=== PATIENT | male | born 1980 | race Hispanic/Latino ===

== ENCOUNTER 2023-10-03 11:42 | Emergency (ER) | payer SELFPAY ==
--- NOTE | ~2023-10-03 | XR_ITS ---
XR chest 2V DATE: 10/03/2023 12:58 INDICATION: Cough, shortness of breath with exertion, fever for one month TECHNIQUE: PA and lateral views COMPARISON: None FINDINGS: Heart size appears within upper limits of normal. No hilar or mediastinal enlargement. No pulmonary infiltrate or consolidation, pleural effusion or pulmonary vascular congestion or pneumo thorax is detected. Included skeletal structures are unremarkable. IMPRESSION: No active cardiopulmonary disease Reviewed, dictated and finalized at location A. ADVISOR
[2023-10-03 11:45] VITALS: BP 150/105; PULSE 119; RESP 20; TEMP 36.6; O2SAT 99
--- NOTE | 2023-10-03 11:54 | ECG_ITS ---
Measurements Intervals [place] Rate: 64 P: 15 IA: 211 QRS: 7 QRSD: 90 T: 97 QT: 339 QTc: 350 Interpretive Statements SINUS RHYTHM WITH FIRST DEGREE AV BLOCK DELAYED PRECORDIAL R/S TRANSITION CONSIDER INFERIOR INFARCT, AGE INDETERMINATE ST-T WAVE ABNORMALITY IN HIGH LATERAL LEADS- CONSIDER ISCHEMIA ABNORMAL ECG NO PREVIOUS ECG AVAILABLE FOR COMPARISON Electronically Signed On 10-04-2023 13:12:10 [employer] ATTENDANT by Carlos Lombardo D.O.
--- NOTE | 2023-10-03 12:05 | ED.GENADULT ---
HPI - General Adult General Chief complaint: Upper Respiratory Infection Stated complaint: cough/fever Time Seen by Provider: 10/03/23 12:03 Source: patient and family (, niece) Mode of arrival: ambulatory Limitations: language barrier History of Present Illness HPI narrative: 43 yo Korean speaking male With no past medical history presents with report of a cough and fever of 1 month duration. He is also having bilateral lower extremity pain, most prominently has bilateral knees as well as the bottom of his feet. He feels short of breath at night, particularly he describes orthopnea as well as paroxysmal nocturnal dyspnea. His cough has been productive of green sputum. He is also complaining of chest pain, though notably this developed after coughing is located along his diaphragm. Denies any underlying cardiac or respiratory conditions. Denies having history of diabetes. However, patient does not have a primary care physician. He lives with his who has not been sick. He does drink approximately years week. No trauma. Patient's niece does help with some interpretation, though patient understands and speaks some [place]mese. Translation appears to be high fidelity. Related Data Allergies Allergy/AdvReac Type Severity Reaction Status Date / Time No Known Allergies Allergy Verified 10/03/23 11:53 [facility] Social History Social History (Updated 10/03/23 @ 12:20 by Kamilah Myrick MD) Alcohol intake: current Drinks per week: 8 Exam Narrative: GENERAL: Well-appearing, well-nourished, and in no acute distress. HEAD: Normocephalic, atraumatic. EYES: Non injected, non icteric ENT: Nares clear, no rhinorrhea or epistaxis. NECK: Supple. CHEST: Clear to auscultation. No respiratory distress. HEART: Tachycardic rate and rhythm. . ABDOMEN: Soft, nondistended. EXTREMITIES: Normal range of motion. No edema. SKIN: Clammy, no rash. NEURO: No focal deficits. Alert and oriented x3. PSYCH: Normal mood and affect. Course Vital Signs Vital signs: Vital Signs Temperature 97.9 F 10/03/23 11:45 Pulse Rate 119 H 10/03/23 11:45 Respiratory Rate 20 10/03/23 11:45 Blood Pressure 150/105 H 10/03/23 11:45 Pulse Oximetry 99 10/03/23 11:45 Oxygen Delivery Room Air 10/03/23 11:45 Temperature 97.9 F 10/03/23 16:31 Pulse Rate 97 10/03/23 16:31 Respiratory Rate 18 10/03/23 16:31 Blood Pressure 127/69 10/03/23 16:31 Pulse Oximetry 97 10/03/23 16:31 Oxygen Delivery Room Air 10/03/23 11:51 Medical Decision Making MDM Narrative Medical decision making narrative: Patient presents with concern for cough and fever of >1 months duration. Also developed CP after coughing. Having pain in bilateral knees andbottoms of feet but no trauma. Does not have a PCP; no underlying diagnoses. Drinks 8 drinks/week so I suspect LE symptoms might be a degree of neuropathy secondary to possible diabetes versus alcohol use. Knee pain might represent generalized myalgias. Patient is slightly diaphoretic my exam. He was initially tachycardic But hypertensive. For this reason I initially deferred obtaining lactic acid as he stated that he became diaphoretic because of the needle involved with IV insertion. However, shortly thereafter the RN informs me with that he remains diaphoretic and he is now hypotensive but no longer tachycardic. Will continue to keep the orders as they stand with the addition of lactic acid. He tests positive for influenza A. Lactic acid initially elevated. Will give 2nd fluid bolus. Informed of diagnosis. Verifies understanding. Dimer, trop, and BNP WNL. Repeat lactic acid WNL. Stable for DC with instructions for rest and suppotive care. Differential Diagnosis Differential Diagnosis: acute viral syndrome, ACS, heart failure, PE Vital Signs Vital Signs: Vital Signs Temperature 97.9 F 10/03/23 11:45 Pulse Rate 119 H 10/03/23 11:45 Respiratory Rate 20 0
[2023-10-03] MEDS: SODIUM CHLORIDE 0.9% IV 1,000 ML 999 ML IV CONT ×2 (12:18→13:34)
[2023-10-03 12:24] VITALS: BP 101/53; PULSE 98; RESP 15; O2SAT 97
[2023-10-03 12:25] LABS: Basophils Absolute Auto 0.1 K/mm3 (0.0-0.1); Basophils Percent Auto 0.5 % (0.2-1.2); Eosinophils Absolute Auto 0.1 K/mm3 (0-0.3); Eosinophils Percent Auto 1.1 % (0-4.4); Hematocrit 47.2 % (42.0-52.0); Hemoglobin 15.8 g/dL (14.0-18.0); Immature Granulocyte Absolute 0.03 K/mm3 (0.00-0.031); Immature Granulocyte Percent A 0.3 % (0-0.5); Lymphocytes Absolute Auto 1.76 K/mm3 (0.9-3.2); Lymphocytes Percent Auto 16.4 % (18.3-44.2); Mean Corpuscular HGB Conc 33.5 g/dl (32-36); Mean Corpuscular Hemoglobin 29.2 pg (26-34); Mean Corpuscular Volume 87.1 fl (80-100); Mean Platelet Volume 10.6 fl (7.4-10.4); Monocytes Absolute Auto 0.6 K/mm3 (0.1-0.6); Monocytes Percent Auto 5.6 % (2.6-8.5); Neutrophils Absolute Auto 8.1 K/mm3 (1.3-6.7); Neutrophils Percent Auto 76.1 % (45.5-73.1); Platelet Count Result 299 k/mm3 (150-375); Red Blood Count 5.42 M/mm3 (4.6-6.20); Red Cell Distribution Width 12.9 % (11.5-14.5); White Blood Count 10.7 K/mm3 (4.5-10.0)
[2023-10-03 12:36] LABS: Alanine Aminotransferase 71 U/L (6-50); Albumin Level 4.7 g/dL (3.5-5.1); Alkaline Phosphatase 115 U/L (38-126); Anion Gap 13 mmol/L (8-16); Aspartate Amino Transferase 49 U/L (17-59); Bilirubin,Total 0.5 mg/dL (0.2-1.3); Blood Urea Nitrogen 13 mg/dL (9-20); Calcium 9.6 mg/dL (8.4-10.2); Carbon Dioxide 24 mmol/L (22-30); Chloride 101 mmol/L (98-107); Estimated CRCL calculation 138 ml/min; Estimated Glomerular Filt Rate > 60; Glucose 222 mg/dL (65-110); Potassium 3.5 mmol/L (3.4-5.0); Sodium 138 mmol/L (137-145)
[2023-10-03 12:43] LABS: Lipase 49 U/L (23-300)
[2023-10-03 12:44] LABS: Lactic Acid Reflex 2.2 mmol/L (0.7-2.0)
[2023-10-03 12:56] LABS: NT Pro B Type Natriuretic Pept < 20 pg/mL (19.9-100); Troponin I < 0.012 ng/mL (0.000-0.034)
[2023-10-03 12:57] LABS: D Dimer 0.28 ug/mL (<0.48)
[2023-10-03 13:03] LABS: Influenza A QL RT-PCR Negative (Negative); Influenza B QL RT-PCR Positive (Negative); RSV RNA, RT-PCR Negative (Negative); SARS-CoV-2 RNA PCR Negative (Negative)
[2023-10-03 13:05] VITALS: BP 131/81; PULSE 104; RESP 16; O2SAT 100
[2023-10-03] MEDS: ACETAMINOPHEN 500 MG TABLET 1000 MG PO (13:32)
[2023-10-03 15:31] LABS: Reflex Lactic Acid Yes or No Add Lactic
[2023-10-03 15:49] VITALS: BP 127/62; PULSE 108; RESP 16; TEMP 36.8; O2SAT 98
[2023-10-03 15:59] LABS: Lactic Acid 1.3 mmol/L (0.7-2.0)
[2023-10-03 16:31] VITALS: BP 127/69; PULSE 97; RESP 18; TEMP 36.6; O2SAT 97
== END 2023-10-03 16:32 | disposition home or self-care (01) ==
PROVIDERS: Emergency Medicine; Emergency Provider Student in an Organized Health Care Education/Training Program
DX: J10.1 Influenza due to other identified influenza virus with other respiratory manifestations (principal); R73.9 Hyperglycemia, unspecified; R06.09 Other forms of dyspnea; R07.9 Chest pain, unspecified; M25.562 Pain in left knee; M25.561 Pain in right knee; Z20.822 Contact with and (suspected) exposure to COVID-19
CPT/HCPCS: 36415; 71046; 80053; 83605; 83690; 83880; 84484; 85025; 85380; 87637; 93005; 96360; 96361; 99284; A9270; J7030